=== PATIENT | male | born 1990 | race Two or more races ===

== ENCOUNTER 2021-04-14 13:18 | Emergency (ER) | payer OTHER ==
[~2021-04-14] VITALS: Ht 162.6 cm; Wt 63.5 kg
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
[2021-04-14] MEDS ORDERED: FUROSEMIDE 40 MG/4 ML VIAL IV ONE (14:00)
[2021-04-14] MEDS ORDERED: IBUPROFEN 600 MG TABLET ONE (16:06)
--- NOTE | 2021-04-14 16:10 | NUR ---
PATIENT A/OX4, BREATHING EVEN AND UNLABORED, NO CHANGE IN LOC. PATIENT IN NO DISTRESS NOTED. AMBULATORY WITH STEADY GAIT. Patient discharged to home in stable condition. Written and verbal after care instructions given. Patient verbalizes understanding of instruction.
[2021-04-14 16:12] VITALS: BP 117/61
[2021-04-14] MEDS ORDERED: IBUPROFEN 600 MG TABLET PO ONE (16:30)
== END 2021-04-14 16:12 | disposition home or self-care (01) ==
LOC: ER 13:34
DX: S09.8XXA Other specified injuries of head, initial encounter (principal); W22.8XXA Striking against or struck by other objects, initial encounter; Y93.89 Activity, other specified; Y92.89 Other specified places as the place of occurrence of the external cause; Y99.0 Civilian activity done for income or pay
CPT/HCPCS: 70450-TC